=== PATIENT | male | born 1955 | race Caucasian/White ===

== ENCOUNTER 2021-11-03 08:06 | Outpatient (RCR) | payer MEDICARE, OTHER, SELFPAY ==
[2021-11-03 15:21] VITALS: BP 139/56; PULSE 88; RESP 20; TEMP 36.9; O2SAT 100
[2021-11-03] MEDS: FAMOTIDINE 20 MG TABLET PO (15:26)
[2021-11-03] MEDS: ACETAMINOPHEN 325 MG TABLET 650 MG PO (15:26)
[2021-11-03] MEDS: diphenhydrAMINE HCl CAP 25 MG CAPSULE PO (15:26)
[2021-11-03 16:36] VITALS: BP 118/51
== END 2021-11-03 17:00 ==
LOC: AMCINF 08:06
PROVIDERS: Visit Provider Internal Medicine Hematology & Oncology
DX: U07.1 COVID-19 (principal); I10 Essential (primary) hypertension; I25.10 Atherosclerotic heart disease of native coronary artery without angina pectoris; J44.9 Chronic obstructive pulmonary disease, unspecified
CPT/HCPCS: A9270; M0243; Q0244